=== PATIENT | male | born 1985 | race Two or more races ===

== ENCOUNTER 2018-04-26 01:15 | Emergency (ER) | payer MEDICARE, MEDICAID ==
[~2018-04-26] VITALS: Ht 175.3 cm; Wt 95.3 kg
[2018-04-26 03:33] VITALS: BP 132/78
[2018-04-26] MEDS ORDERED: SILVER SULFADIAZINE 1 % TOPICAL CREAM 50GM TOP ONE (03:45)
[2018-04-26] MEDS ORDERED: HYDROcodone-ACET 10/325MG TAB PO ONE (04:00)
[2018-04-26] MEDS ORDERED: cefTRIAXone SOD 1,000 MG VL IM ONE (04:00)
[2018-04-26] MEDS ORDERED: TETANUS-DIPTH-ACEL PERTUSSIS 0.5ML SYRG IM ONE (04:15)
== END 2018-04-26 04:17 | disposition home or self-care (01) ==
LOC: ER 01:17
DX: T23.001A Burn of unspecified degree of right hand, unspecified site, initial encounter (principal); T31.0 Burns involving less than 10% of body surface; X19.XXXA Contact with other heat and hot substances, initial encounter; Y93.89 Activity, other specified; Y92.89 Other specified places as the place of occurrence of the external cause; Y99.8 Other external cause status
CPT/HCPCS: 16020; 90471; 90715; 96372; 99284; J0696